=== PATIENT | female | born 1980 | race Hispanic/Latino ===

== ENCOUNTER 2020-07-01 16:56 | Emergency (ER) | payer SELFPAY ==
[2020-07-01 17:43] LABS: Bilirubin Negative (Negative); Blood, Urine Negative (Negative); Clarity Turbid (Clear); Glucose, Urine (Dipstick) Normal (Negative); Ketone, Urine Negative (Negative); Leukocyte 500 Leu/uL (Negative); Nitrite Negative (Negative); Protein, Urine (Dipstick) Negative (Neg-Trace); Specific Gravity, Urine 1.017 (1.002-1.036); Urobilinogen Normal mg/dL (Less than 2)
[2020-07-01 17:58] LABS: Bacteria/HPF 2+ HPF (None Seen)
[2020-07-01 17:59] LABS: Yeast-Budding 1+ HPF (None Seen)
== END 2020-07-01 17:46 | disposition home or self-care (01) ==
LOC: ERS 16:56
DX: B37.3 Candidiasis of vulva and vagina (principal)
CPT/HCPCS: 81003; 81015; 87086; 99283

== ENCOUNTER 2020-07-11 20:26 | Emergency (ER) | payer SELFPAY ==
[2020-07-11 22:09] LABS: #Basophils 0.1 thou/uL (0.0-0.2); #Eosinphils 0.1 thou/uL (0.0-0.7); #Lymphocytes 2.4 thou/uL (1.20-3.40); #Monocytes 0.7 thou/uL (0.11-0.59); #Neutrophils 4.7 thou/uL (1.40-6.50); %Basophils 0.8 % (0.0-1.0); %Eosinophils 1.5 % (0.0-10.0); %Lymphocytes 29.8 % (21.0-51.0); %Monocytes 9.1 % (0.0-10.0); %Neutrophils 58.8 % (42.0-75.0); Hemoglobin 11.2 g/dL (12.0-16.0); Mean Corpuscular HGB CONC 34.2 g/dL (32.0-36.0); Mean Corpuscular Hemoglobin 31.4 pg (27.0-31.0); Mean Corpuscular Volume 91.7 fL (78.0-98.0); Mean Platelet Volume 9.3 fL (7.4-10.4); Platelet Count 208 thou/uL (130-400); RBC Distribution Width 11.9 % (11.5-14.5); Red Blood Cell (RBC) Count 3.57 mill/uL (4.20-5.40); White Blood Cell (WBC) Count 7.9 thou/uL (4.8-10.8)
[2020-07-11 22:26] LABS: Chloride 109 mmol/L (98-107); Potassium 3.2 mmol/L (3.5-5.1); Sodium 139 mmol/L (136-145)
[2020-07-11 22:27] LABS: ALT (SGPT) 10 U/L (8-55); AST (SGOT) 13 U/L (5-34); Alkaline Phosphatase 86 U/L (40-110); Anion Gap 12 mmol/L (10-20); BUN (Urea Nitrogen) 10 mg/dL (7.0-18.7); Bilirubin, Total 0.2 mg/dL (0.2-1.2); Calc. Creatinine Clearance 0 mL/min (70-130); Calcium 8.2 mg/dL (7.8-10.44); Carbon Dioxide 21 mmol/L (22-29); Globulin 3.2 g/dL (2.4-3.5); Glucose 113 mg/dL (70-105); Protein, Total 6.2 g/dL (6.0-8.3)
== END 2020-07-11 23:48 | disposition home or self-care (01) ==
LOC: ERS 20:26
DX: O99.891 Other specified diseases and conditions complicating pregnancy (principal); R55 Syncope and collapse; Z3A.26 26 weeks gestation of pregnancy; W18.30XA Fall on same level, unspecified, initial encounter
CPT/HCPCS: 36415; 80053; 85025; 93005

== ENCOUNTER 2020-07-11 23:52 | Day surgery (SDC) | payer SELFPAY ==
[2020-07-12 00:39] VITALS: BMI 26.9
[2020-07-12] MEDS ORDERED: hydrALAZINE 20 MG/ML VIAL SLOW IVP PRN (01:12)
[2020-07-12] MEDS ORDERED: Acetaminophen 500 MG TAB PO PRN (01:30)
--- NOTE | 2020-07-12 07:59 | ULT ---
PRELIMINARY REPORT/[facility]/EMERGENCY AFTER HOURS PROCEDURE EXAM: US Obstetrical, Complete >14 weeks. CLINICAL HISTORY: HX: S/P FALL. CONTRACTIONS AT 28WKS. TECHNIQUE: Transabdominal imaging of the maternal pelvis and a > 14 week gestation with image documentation. COMPARISON: None provided. FINDINGS: FETUS: There is a single living intrauterine gestation, estimated gestational age 28 weeks 3 days POSITION: position is vertex. HEART RATE: The heart rate is 160 beats per minute. BIOMETRICS: Based on composite biometry, the estimated gestational age by ultrasound is 28 weeks 3 days cor responding to a due date of 10/01/2020. The estimated weight is 1269 g. ANATOMIC SURVEY: The visualized anatomy is unremarkable. PLACENTA: The placenta is located on the RIGHT. No sonographic evidence for previa or abruption. AMNIOTIC FLUID: Within normal limits. The MILE measures 18.5 cm CERVIX: Closed. Unremarkable as visualized. Measures 4.1 cm IMPRESSION: Single viable intrauterine . No acute abnormality. ELECTRONICALLY SIGNED BY: Harsh Bell MD Jul 12, 2020 2:50:23 AM EXCEPTIONAL CHILDREN'[employer] TE[employer]ER This report is intended for review by the ordering physician only, in accordance of law. If you recei ve this report in error, please call [facility] at [phone]. FINAL REPORT Final report by Dr. Smith Emergency after-hours study ULTRASOUND OBSTETRICAL COMPLETE: ULTRASOUND BIOPHYSICAL PROFILE: DATE: 07/12/2020 2:21 AM HISTORY: 40-year-old female status post fall experiencing uterine contractions, labor. FINDINGS: Maternal adnexa: Not visualized number: armando lie: Cephalic Maternal cervix: 4 cm. Closed. Placenta: Anterior. No placenta previa. No abruptio placentae. Amniotic fluid volume: MILE = 18.5cm heart rate: 160 bpm The following anatomy is visualized, with no evidence of anomalies: Spine, bladder, diaphragm, bilateral kidneys, four-chamber heart, stomach, and cord insertion. biometry: Biparietal diameter (BPD): 6.9 cm 27 w 6 d Head circumference (HC): 25.9 cm 28 w 1 d Abdominal circumference (AC): 24.7 cm 29 w 0 d Femur length (FL): 5.4 cm (28 w 5 d Average ultrasound age (AUA): 28 w 3 d Estimated date of delivery (JULIAN): 10/01/2020 Estimated weight (EFW): 1269 g +/- 188 g breathin tone: 2 movement: 2 Amniotic fluid volume: 2 Agree with preliminary report by [facility]. IMPRESSION: 1) Live 3rd trimester intrauterine gestation. 2) Estimated gestational age of 28 weeks, 3 days 3) cephalic lie. 4) no acute, traumatic complications identified. 5) Normal biophysical profile score of 8 out of 8, excluding the nonstress test. Transcribed Date/Time: 07/12/2020 8:09 AM
--- NOTE | 2020-07-12 08:12 | ULT ---
PRELIMINARY REPORT/[facility]/EMERGENCY AFTER HOURS PROCEDURE: EXAM: US Obstetrical, Complete <14 weeks CLINICAL HISTORY: BIO- PROFILE. HX: S/P FALL, CONTRACTIONS AT 28 WKS. EVAL WELL BEING. SEE NOTES ON LAST IM AGES. TECHNIQUE: Transvaginal and transabdominal imaging of the maternal pelvis and a <14 week gestation with image do cumentation. COMPARISON: Report on the same study by Dr. Bell FINDINGS: breathing 2 tone 2 movement - Present 2 MILE- WNL 2 SCORE 8 Please note this report is being generated based on the same images interpreted by Dr. Bell - please refer to the report for additional findings. IMPRESSION: Single viable intrauterine . No acute abnormality. Biophysical profile score as above. ELECTRONICALLY SIGNED BY: Ale Ponce MD Jul 12, 2020 6:18:34 AM DISP[employer] DISPOSAL This report is intended for review by the ordering physician only, in accordance of law. If you recei ve this report in error, please call [facility] at [phone]. FINAL REPORT BIOPHYSICAL PROFILE: Biophysical profile score is 8/8, as noted on the preliminary report. Position: Vertex. julien rate: 160 bpm. Cervical length: 4.1 cm. Placenta location: Anterior to the right. I am in agreement with the preliminary report issued by [facility]. POS: YANETH
--- NOTE | 2020-07-13 05:42 | SS ---
DATE OF ADMISSION: 07/11/2020 DATE OF DISCHARGE: 07/12/2020 LABOR AND DELIVERY TRIAGE NOTE REGULAR PHYSICIAN: Jayden Gaspar MD EVALUATING PHYSICIAN: Rom Eng MD CHIEF COMPLAINT: Status post fall at home, contractions. HISTORY OF PRESENT ILLNESS: Ms. Peña is a 40-year-old , G11, P8, with an estimated date of confinement of 10/01/2020, who presents from the ER after reportedly having a fall at home where she hit her head. She now reports intermittent contractions. She denies associated ruptured membranes or vaginal bleeding. She has been evaluated in the emergency room and been cleared there and is now here for evaluation. Her care has been with Dr. Gaspar and has been complicated by a reportedly low-lying placenta. PAST OBSTETRICAL HISTORY: Includes 8 previous vaginal deliveries, all at term. PAST MEDICAL HISTORY: None. PAST SURGICAL HISTORY: None. CURRENT MEDICATIONS: vitamins. ALLERGIES: NO KNOWN ALLERGIES. SOCIAL HISTORY: Denies tobacco, alcohol, or drug use. FAMILY HISTORY: Unremarkable. REVIEW OF SYSTEMS: Denies nausea, vomiting, fever, chills, ruptured membranes, or vaginal bleeding. PHYSICAL EXAMINATION: VITAL SIGNS: In triage, her vital signs are stable, and she is afebrile. GENERAL: She is pleasant and in no acute distress. She answers questions well and is not uncomfortable in any way. ABDOMEN: Soft, nontender, and gravid. heart rate tracing is stable. No uterine contractions are seen. Ultrasound examinations shows a biophysical profile of 8/8. Her cervix is 4 cm in length, no previa seen, and she has a normal amniotic fluid index. ASSESSMENT: 1. A 28 and 3/7th week intrauterine . 2. Status post fall at home. 3. Reassuring testing here this morning. PLAN: The patient will be dismissed home. She was given complete precautions. She states that she has an appointment with Dr. Gaspar in the office this morning. Job ID: [id number]
== END 2020-07-12 03:50 | disposition home or self-care (01) ==
LOC: L&D/OP 23:52
PROVIDERS: ATTEND Obstetrics & Gynecology
DX: O47.03 False labor before 37 completed weeks of gestation, third trimester (principal); O44.43 Low lying placenta NOS or without hemorrhage, third trimester; O09.523 Supervision of elderly multigravida, third trimester; Z3A.28 28 weeks gestation of pregnancy; W19.XXXA Unspecified fall, initial encounter; Y92.009 Unspecified place in unspecified non-institutional (private) residence as the place of occurrence of the external cause
CPT/HCPCS: 76815; 76819; 99282

== ENCOUNTER 2021-06-17 20:55 | Emergency (ER) | payer OTHER, SELFPAY ==
[2021-06-17 21:25] LABS: #Basophils 0.1 thou/uL (0.0-0.2); #Eosinphils 0.2 thou/uL (0.0-0.7); #Lymphocytes 3.2 thou/uL (1.20-3.40); #Monocytes 0.5 thou/uL (0.11-0.59); #Neutrophils 2.8 thou/uL (1.40-6.50); %Eosinophils 2.7 % (0.0-10.0); %Lymphocytes 47.1 % (21.0-51.0); %Monocytes 7.8 % (0.0-10.0); %Neutrophils 41.3 % (42.0-75.0); Hemoglobin 13.9 g/dL (12.0-16.0); Mean Corpuscular HGB CONC 34.2 g/dL (32.0-36.0); Mean Corpuscular Hemoglobin 31.3 pg (27.0-31.0); Mean Corpuscular Volume 91.6 fL (78.0-98.0); Mean Platelet Volume 8.5 fL (7.4-10.4); Platelet Count 273 thou/uL (130-400); RBC Distribution Width 11.4 % (11.5-14.5); Red Blood Cell (RBC) Count 4.43 mill/uL (4.20-5.40); White Blood Cell (WBC) Count 6.8 thou/uL (4.8-10.8)
[2021-06-17] MEDS ORDERED: Ketorolac Tromethamine 30 MG/ML VIAL ONE (21:29)
[2021-06-17 21:55] LABS: ALT (SGPT) 11 U/L (8-55); AST (SGOT) 13 U/L (5-34); Albumin 4.1 g/dL (3.5-5.0); Alkaline Phosphatase 76 U/L (40-110); Anion Gap 10 mmol/L (10-20); BUN (Urea Nitrogen) 19 mg/dL (7.0-18.7); Bilirubin, Total 0.3 mg/dL (0.2-1.2); Calc. Creatinine Clearance 0 mL/min (70-130); Calcium 9.2 mg/dL (7.8-10.44); Carbon Dioxide 26 mmol/L (22-29); Chloride 106 mmol/L (98-107); Globulin 3.4 g/dL (2.4-3.5); Glucose 104 mg/dL (70-105); Protein, Total 7.5 g/dL (6.0-8.3); Sodium 138 mmol/L (136-145)
[2021-06-17 22:09] LABS: BHCG - Serum Negative (NEGATIVE); Pregs Control Background? CLEAR/WHITE (CLR/WHITE); Pregs Control Bar Appear? YES (CONTROL BAR)
== END 2021-06-17 22:50 | disposition home or self-care (01) ==
LOC: ERS 20:55
DX: R55 Syncope and collapse (principal)
CPT/HCPCS: 71045; 80053; 84484; 84703; 85025; 93005; 96374; J1885

== ENCOUNTER 2022-02-15 21:19 | Emergency (ER) | payer SELFPAY ==
[~2022-02-15 21:19] MED LIST: Iopamidol-370 76% 500 ML 1 ML ONE
[2022-02-15 21:39] LABS: #Basophils 0.1 thou/uL (0.0-0.2); #Eosinphils 0.2 thou/uL (0.0-0.7); #Lymphocytes 2.1 thou/uL (1.20-3.40); #Monocytes 0.6 thou/uL (0.11-0.59); #Neutrophils 2.9 thou/uL (1.40-6.50); %Eosinophils 4.1 % (0.0-10.0); %Lymphocytes 35.5 % (21.0-51.0); %Monocytes 10.8 % (0.0-10.0); %Neutrophils 48.7 % (42.0-75.0); Hemoglobin 13.4 g/dL (12.0-16.0); Mean Corpuscular HGB CONC 32.9 g/dL (32.0-36.0); Mean Corpuscular Hemoglobin 30.8 pg (27.0-31.0); Mean Corpuscular Volume 93.4 fL (78.0-98.0); Mean Platelet Volume 8.8 fL (7.4-10.4); Platelet Count 245 thou/uL (130-400); RBC Distribution Width 11.7 % (11.5-14.5); Red Blood Cell (RBC) Count 4.37 mill/uL (4.20-5.40); White Blood Cell (WBC) Count 5.9 thou/uL (4.8-10.8)
[2022-02-15 22:00] LABS: ALT (SGPT) 10 U/L (8-55); AST (SGOT) 15 U/L (5-34); Albumin 3.9 g/dL (3.5-5.0); Alkaline Phosphatase 78 U/L (40-110); Anion Gap 11 mmol/L (10-20); BUN (Urea Nitrogen) 14 mg/dL (7.0-18.7); Bilirubin, Total 0.4 mg/dL (0.2-1.2); Calc. Creatinine Clearance 0 mL/min (70-130); Calcium 8.8 mg/dL (7.8-10.44); Carbon Dioxide 25 mmol/L (22-29); Chloride 105 mmol/L (98-107); Estimated GFR 104; Globulin 3.5 g/dL (2.4-3.5); Glucose 95 mg/dL (70-105); Potassium 3.7 mmol/L (3.5-5.1); Protein, Total 7.4 g/dL (6.0-8.3); Sodium 137 mmol/L (136-145)
[2022-02-15 22:12] LABS: Pregnancy Test - Urine (BHCG) Negative (Negative); Pregu Control Background? CLEAR/WHITE (CLR/WHITE); Pregu Control Bar Appear? YES (CONTROL BAR)
[2022-02-15 22:14] LABS: Bacteria/HPF None Seen HPF (None Seen); Bilirubin Negative (Negative); Blood, Urine 3+ (Negative); Clarity Clear (Clear); Glucose, Urine (Dipstick) Normal (Negative); Ketone, Urine Negative (Negative); Leukocyte Negative Leu/uL (Negative); Mucous/LPF Rare LPF (<2+); Nitrite Negative (Negative); Protein, Urine (Dipstick) Negative (Neg-Trace); RBC/HPF Greater than 50 HPF (0-3); Squamous Epithelial 0-3 HPF (0-3); Urobilinogen Normal mg/dL (Less than 2); WBC/HPF 0-3 HPF (0-3); pH, Urine 6.5 (5.0-9.0)
[2022-02-15] MEDS ORDERED: Lidocaine Viscous Sol 2% 15 ml UD Cup ONE (22:18)
[2022-02-15] MEDS ORDERED: Ondansetron PF 4 MG/2 ML Vial ONE (22:18)
[2022-02-15] MEDS ORDERED: Mag-Al 1200 mg/1200 mg/30 ML UDCUP ONE (22:18)
== END 2022-02-16 00:36 | disposition home or self-care (01) ==
LOC: ERS 21:19
DX: I88.0 Nonspecific mesenteric lymphadenitis (principal); R19.7 Diarrhea, unspecified; R11.2 Nausea with vomiting, unspecified
CPT/HCPCS: 36415; 71045; 74177; 80053; 81003; 81015; 81025; 83690; 84484; 85025; 93005; 96374; J2405; Q9967